=== PATIENT | male | born 1990 | race Caucasian/White ===

== ENCOUNTER 2019-03-16 13:31 | Emergency (ER) | payer MEDICAID ==
[~2019-03-16] VITALS: Ht 190.5 cm; Wt 94.4 kg
[2019-03-16 13:56] VITALS: BP 147/103
--- NOTE | 2019-03-16 14:04 | NUR ---
Patient ambulated to bed 8. RN evaluating patient at bedside.
--- NOTE | 2019-03-16 14:15 | NUR ---
C/O SORE THROAT, COUGH & CONGESTION X5 DAYS. PT DENIES FEVER, N/V/D. O2 SAT RA 97%, LUNG SOUNDS CAEBL, NO LABORED BREATHING NOTED. BACK OF THROAT IS BEEFY RED, SWOLLEN PRIMARILY ON R SIDE. BED IN LOW POSITION, SIDE RAIL UP X1, PT PLACED IN GOWN AND ON BEDSIDE IN CLASSROOM TUTOR.
--- NOTE | 2019-03-16 15:04 | NUR ---
DR. CHOW AT BEDSIDE
[2019-03-16] MEDS ORDERED: DEXAMETHASONE 10 MG/ML VIAL IM ONE (15:10)
[2019-03-16 15:50] VITALS: BP 147/103
--- NOTE | 2019-03-16 15:51 | NUR ---
Patient discharged with v/s stable. Written and verbal after care instructions given and explained. Patient alert, oriented and verbalized understanding of instructions. Ambulatory with steady gait. All questions addressed prior to discharge. ID band removed. Patient advised to follow up with PMD. Rx of NORCO, NAPROSYN, AND AUGMENTIN given. Patient educated on indication of medication including possible reaction and side effects. Opportunity to ask questions provided and answered.
== END 2019-03-16 15:51 | disposition home or self-care (01) ==
LOC: MED 13:31
DX: J02.9 Acute pharyngitis, unspecified (principal); I10 Essential (primary) hypertension; R05 Cough; F17.209 Nicotine dependence, unspecified, with unspecified nicotine-induced disorders
CPT/HCPCS: 96372; 99283; J1100

== ENCOUNTER 2020-07-11 15:36 | Emergency (ER) | payer SELFPAY ==
[~2020-07-11] VITALS: Ht 193 cm; Wt 96.2 kg
[2020-07-11 15:43] VITALS: BP 144/105
--- NOTE | 2020-07-11 15:44 | NUR ---
PT ambulated to bed 3.
--- NOTE | 2020-07-11 15:45 | NUR ---
29Y M c/c 10/10 right facial pressure pain that radiates to his ear and head from possible abscess x4days. Reports pain on moving jaw and difficulty chewing. Pt denies puss. He admits to right sided root canal that was never capped years ago. He tried taking ibuprofen with no relief. NKA RX: Denies PMH: HTN but was told to exercise and diet to lower it.
--- NOTE | 2020-07-11 16:00 | NUR ---
ERMD EVALUATING PT AT BEDSIDE.
[2020-07-11] MEDS ORDERED: KETOROLAC 30 MG/ML VIAL IM ONE (16:30)
[2020-07-11] MEDS ORDERED: ACET-8386 PO (16:37)
[2020-07-11] MEDS ORDERED: AMOX-1000 PO (16:37)
[2020-07-11] MEDS ORDERED: NAPR-54 PO (16:37)
[2020-07-11 17:02] VITALS: BP 132/98
--- NOTE | 2020-07-11 17:02 | NUR ---
Patient discharged with v/s stable. Written and verbal after care instructions given and explained. Patient alert, oriented and verbalized understanding of instructions. Ambulatory with steady gait. All questions addressed prior to discharge. ID band removed. Patient advised to follow up with PMD. Rx of Hydrocodone, amoxicillin/potassium, and naproxen. given. Patient educated on indication of medication including possible reaction and side effects. Opportunity to ask questions provided and answered.
== END 2020-07-11 17:02 | disposition home or self-care (01) ==
LOC: MED 15:36
DX: K04.7 Periapical abscess without sinus (principal); F12.90 Cannabis use, unspecified, uncomplicated; Z79.899 Other long term (current) drug therapy
CPT/HCPCS: 96372; 99283; J1885

== ENCOUNTER 2021-02-21 13:14 | Emergency (ER) | payer SELFPAY ==
[~2021-02-21] VITALS: Ht 193 cm; Wt 90.7 kg
[~2021-02-21 13:14] MED LIST: ACET-8386 PO; AMOX-1000 PO; NAPR-54 PO
[2021-02-21 13:19] VITALS: BP 148/89
--- NOTE | 2021-02-21 13:26 | NUR ---
PT AMBULATED TO ER BED 6
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
--- NOTE | 2021-02-21 13:34 | NUR ---
DR EAGLE AT BEDSIDE EVALUATING PT
[2021-02-21] MEDS ORDERED: KETOROLAC 60 MG/2 ML VIAL IM ONE (13:35)
[2021-02-21] MEDS ORDERED: IBUP-2213 PO (13:42)
[2021-02-21] MEDS ORDERED: ACET-8386 PO (13:42)
[2021-02-21 14:00] VITALS: BP 148/89
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
== END 2021-02-21 13:31 | disposition home or self-care (01) ==
LOC: MED 13:14
DX: S16.1XXA Strain of muscle, fascia and tendon at neck level, initial encounter (principal); F17.200 Nicotine dependence, unspecified, uncomplicated; F12.90 Cannabis use, unspecified, uncomplicated; Z79.899 Other long term (current) drug therapy; V89.2XXA Person injured in unspecified motor-vehicle accident, traffic, initial encounter; Y93.89 Activity, other specified; Y92.89 Other specified places as the place of occurrence of the external cause; Y99.8 Other external cause status
CPT/HCPCS: 96372; 99283; J1885

== ENCOUNTER 2021-09-10 12:14 | Emergency (ER) | payer SELFPAY ==
[~2021-09-10] VITALS: Ht 193 cm; Wt 88.9 kg
[~2021-09-10 12:14] MED LIST changes: +IBUP-2213 PO
[2021-09-10 12:34] VITALS: BP 154/101
--- NOTE | 2021-09-10 12:37 | NUR ---
PT AMBULATED TO BED 9 W/ STEADY GAIT
--- NOTE | 2021-09-10 12:40 | NUR ---
31 Y/O MALE BIB SELF C/O MOUTH PAIN X3 DAYS. PT STATES THE PAIN STARTED WITH ONE MOUTH SORE BUT THE SORES HAVE SPREAD THROUGHOUT HIS MOUTH AND INTO HIS THROAT. PT STATES HE HAS USED ORAL ANTISEPTIC MEDICATION W/O PAIN IMPROVEMENT. PT STATES HE TOOK IBUPROFEN LAST NIGHT. PT DENIES FEVER OR CHILLS. PT DENIES SOB, CHEST PAIN. PMH:HTN MEDS:DENIES
[2021-09-10] MEDS ORDERED: BENZ-300 PO (13:45)
[2021-09-10] MEDS ORDERED: CHLO473S62 PO (13:45)
[2021-09-10] MEDS ORDERED: NYST100022 PO (13:45)
[2021-09-10 13:54] VITALS: BP 114/78
--- NOTE | 2021-09-10 13:55 | NUR ---
Patient discharged with v/s stable. Written and verbal after care instructions given and explained. Patient alert, oriented and verbalized understanding of instructions. Ambulatory with steady gait. All questions addressed prior to discharge. ID band removed. Patient advised to follow up with PMD. Rx of CEPACOL,PERIDEX given. Patient educated on indication of medication including possible reaction and side effects. Opportunity to ask questions provided and answered.
== END 2021-09-10 13:55 | disposition home or self-care (01) ==
LOC: MED 12:14
DX: K12.1 Other forms of stomatitis (principal); I10 Essential (primary) hypertension; Z79.899 Other long term (current) drug therapy
CPT/HCPCS: 99283

== ENCOUNTER 2022-12-05 13:21 | Emergency (ER) | payer MEDICAID ==
[~2022-12-05] VITALS: Ht 193 cm; Wt 86.2 kg
[~2022-12-05 13:21] MED LIST changes: -ACET-8386 PO; +ACET-8905 PO; +BENZ-300 PO; +CHLO473S62 PO; +NYST100022 PO
[2022-12-05 13:35] VITALS: BP 114/66; PULSE 73; RESP 17; TEMP 97.4; O2SAT 98
[2022-12-05] MEDS ORDERED: IBUP-2213 PO (14:36)
== END 2022-12-05 14:55 | disposition home or self-care (01) ==
LOC: MED 13:21
DX: M70.22 Olecranon bursitis, left elbow (principal); G89.29 Other chronic pain; M54.2 Cervicalgia; I10 Essential (primary) hypertension; Z79.899 Other long term (current) drug therapy; Y93.89 Activity, other specified
CPT/HCPCS: 99281